=== PATIENT | female | born 1970 | race Caucasian/White ===

== ENCOUNTER → 2016-11-02 | Outpatient (CLI) | payer OTHER ==
[~2016-11-02] VITALS: Ht 180.3 cm; Wt 132.7 kg
[~2016-11-02] MED LIST: AMBIEN 10MG10 MG PO; BCP; BELVIQ; BUSPAR10 MG PO; CELEXA40 MG PO; CENA K20 MEQ/15 PO; CENTRUM1 TAB PO; CITALOPRAM20 MG PO; CLONAZEPAM1 M1 PO; FLUOXETINE20 M1 PO; LEVAQUIN 750MG750 M1 PO; LORTAB 10/500 51 TAB; NORCO 325 MG-7.1 TAB PO; PHENTERMINE15 MG PO; TOPAMAX25 M1 PO
[2016-11-02 14:33] VITALS: BP 110/72; PULSE 101
[2016-11-02 14:58] VITALS: BP 110/72; PULSE 101
== END ==
LOC: LIGHT 09-07 11:19
DX: F33.8 Other recurrent depressive disorders (principal); E66.01 Morbid (severe) obesity due to excess calories; Z68.41 Body mass index [BMI] 40.0-44.9, adult; Z98.84 Bariatric surgery status

== ENCOUNTER → 2019-02-28 | Outpatient (CLI) | payer BC | LOC: MC.RAD 07:45 | DX: Z12.31 Encounter for screening mammogram for malignant neoplasm of breast (principal) ==

== ENCOUNTER → 2020-04-19 | Outpatient (CLI) | payer BC | LOC: MC.RAD 09:36 | DX: Z12.31 Encounter for screening mammogram for malignant neoplasm of breast (principal) ==

== ENCOUNTER → 2021-08-15 | Outpatient (CLI) | payer BC | LOC: MC.RAD 14:50 | DX: Z12.31 Encounter for screening mammogram for malignant neoplasm of breast (principal) ==